=== PATIENT | female | born 1980 ===

== ENCOUNTER → 2017-08-03 10:23 | Outpatient (CLI) | payer BC, SELFPAY ==
[2017-08-03 11:53] LABS: Cholesterol 198 mg/dL (140-199); HDL Cholesterol 47 mg/dL (40-60); LDL Cholesterol Calculated 135 mg/dL (<100); Triglycerides 82 mg/dL (35-150)
== END ==
PROVIDERS: PCP Family Medicine; Visit Provider Family Medicine
DX: Z82.49 Family history of ischemic heart disease and other diseases of the circulatory system (principal)
CPT/HCPCS: 36415; 80061

== ENCOUNTER → 2018-11-22 16:12 | Outpatient (CLI) | payer BC, SELFPAY ==
[2018-11-22 17:15] LABS: Add Manual Diff / Slide Review NO; Basophils Absolute Auto 100 /uL (0-100); Basophils Percent Auto 0.7 % (0-2); Eosinophils Absolute Auto 300 /uL (0-450); Eosinophils Percent Auto 3.7 % (2-4); Hematocrit 41.5 % (36-46); Hemoglobin 14.2 g/dL (12.0-16.0); Lymphocytes Absolute Auto 3300 /uL (1100-4500); Lymphocytes Percent Auto 35.2 % (25-40); Mean Corpuscular HGB Conc 34.2 % (30-36); Mean Corpuscular Hemoglobin 28.7 PG (26-34); Mean Corpuscular Volume 83.7 fL (80-100); Monocytes Absolute Auto 600 /uL (0-900); Monocytes Percent Auto 6.3 % (3-14); Neutrophils Absolute Auto 5100 /uL (1500-7000); Neutrophils Percent Auto 54.1 % (50-75); Platelet Count 268 X10^3/uL (150-400); Red Blood Cell Count 4.96 X10^6/uL (4.0-5.2); Red Cell Distribution Width 12.5 % (11.6-14.8); White Blood Cell Count 9.5 X10^3/uL (4.5-11.0)
== END ==
PROVIDERS: Family Provider Specialist; PCP Family Medicine; Visit Provider Registered Nurse
DX: R53.83 Other fatigue (principal)
CPT/HCPCS: 36415; 85025

== ENCOUNTER → 2020-04-19 13:14 | Outpatient (CLI) | payer BC, SELFPAY ==
[2020-04-19 16:23] LABS: Alanine Aminotransferase 59 IU/L (<35); Albumin 3.9 g/dL (3.5-5.0); Albumin Globulin Ratio 1.1 (1.0-2.8); Alkaline Phosphatase 102 U/L (38-126); Aspartate Aminotransferase 49 IU/L (14-36); BUN Creatinine Ratio 29.6 (6-22); Bilirubin Total 0.2 mg/dL (0.2-1.3); Blood Urea Nitrogen 16 mg/dL (7-17); Carbon Dioxide 27 mmol/L (22-32); Chloride 108 mmol/L (98-107); Estimated Glomerular Filt Rate > 60.0 mL/min (>60); Globulin 3.4 g/dL (1.7-4.1); Glucose 122 mg/dL (70-100); HEMOLYSIS < 15 (0-50); Potassium 4.1 mmol/L (3.4-5.1); Sodium 140 mmol/L (137-145); Total Protein 7.3 g/dL (6.3-8.2)
== END ==
PROVIDERS: Family Provider Specialist; PCP Family Medicine; Referring Provider Registered Nurse; Visit Provider Registered Nurse
DX: A60.00 Herpesviral infection of urogenital system, unspecified (principal)
CPT/HCPCS: 36415; 80053

== ENCOUNTER → 2020-06-11 13:46 | Outpatient (CLI) | payer BC, SELFPAY ==
[2020-06-11 14:45] LABS: Alanine Aminotransferase 52 IU/L (<35); Albumin 4.1 g/dL (3.5-5.0); Albumin Globulin Ratio 1.2 (1.0-2.8); Alkaline Phosphatase 111 U/L (38-126); Aspartate Aminotransferase 41 IU/L (14-36); BUN Creatinine Ratio 22.2 (6-22); Bilirubin Total 0.2 mg/dL (0.2-1.3); Blood Urea Nitrogen 10 mg/dL (7-17); Calcium 9.7 mg/dL (8.4-10.2); Carbon Dioxide 25 mmol/L (22-32); Chloride 104 mmol/L (98-107); Estimated Glomerular Filt Rate > 60.0 mL/min (>60); Globulin 3.3 g/dL (1.7-4.1); Glucose 119 mg/dL (70-100); HEMOLYSIS < 15 (0-50); Potassium 4.4 mmol/L (3.4-5.1); Sodium 138 mmol/L (137-145); Total Protein 7.4 g/dL (6.3-8.2)
== END ==
PROVIDERS: Family Provider Specialist; PCP Family Medicine; Referring Provider Family Medicine; Visit Provider Family Medicine
DX: R74.01 Elevation of levels of liver transaminase levels (principal)
CPT/HCPCS: 36415; 80053

== ENCOUNTER → 2020-08-23 10:34 | Outpatient (CLI) | payer BC, SELFPAY ==
--- NOTE | 2020-08-23 | DI.MG.S_ITS ---
BILATERAL DIGITAL SCREENING MAMMOGRAM 3D/2D WITH CAD: 08/23/2020 CLINICAL: Baseline exam. Routine screening. No prior exams were available for comparison. The tissue of both breasts is heterogeneously dense. This may lower the sensitivity of mammography. Current study was also evaluated with a Computer Aided Detection (CAD) system. No significant masses, calcifications, or other findings are seen in either breast. IMPRESSION: NEGATIVE There is no mammographic evidence of malignancy. A 1 year screening mammogram is recommended. This exam was interpreted at Station ID: [id number]. NOTE: For mammograms, a report in lay terms will be sent to the patient. Approximately 15% of breast malignancies will not be visualized mammographically. In the management of a palpable breast mass, a negative mammogram must not discourage biopsy of a clinically suspicious lesion. Electronically Signed By: Richard Mosocso M.D., jr/mallory:08/23/2020 11:23:39 letter sent: Normal Exam ACR BI-RADS Category 1: Negative 3341F
== END ==
PROVIDERS: Family Provider Specialist; PCP Family Medicine; Referring Provider Family Medicine; Visit Provider Family Medicine
DX: Z12.31 Encounter for screening mammogram for malignant neoplasm of breast (principal)
CPT/HCPCS: 77063; 77067

== ENCOUNTER → 2020-08-23 13:55 | Outpatient (CLI) | payer BC, SELFPAY ==
[2020-08-23 15:13] LABS: Alanine Aminotransferase 39 IU/L (<35); Albumin Globulin Ratio 1.2 (1.0-2.8); Alkaline Phosphatase 102 U/L (38-126); Aspartate Aminotransferase 37 IU/L (14-36); BUN Creatinine Ratio 22.6 (6-22); Bilirubin Total 0.4 mg/dL (0.2-1.3); Blood Urea Nitrogen 12 mg/dL (7-17); Calcium 9.5 mg/dL (8.4-10.2); Carbon Dioxide 28 mmol/L (22-32); Chloride 104 mmol/L (98-107); Estimated Glomerular Filt Rate > 60.0 mL/min (>60); Globulin 3.3 g/dL (1.7-4.1); HEMOLYSIS < 15 (0-50); Potassium 4.4 mmol/L (3.4-5.1); Sodium 139 mmol/L (137-145); Total Protein 7.3 g/dL (6.3-8.2)
[2020-08-23 16:25] LABS: Glucose 114 mg/dL (70-100)
== END ==
PROVIDERS: Family Provider Specialist; PCP Family Medicine; Referring Provider Family Medicine; Visit Provider Family Medicine
DX: R94.5 Abnormal results of liver function studies (principal)
CPT/HCPCS: 36415; 80053

== ENCOUNTER → 2020-09-24 15:17 | Outpatient (CLI) | payer BC, SELFPAY ==
[2020-09-24 16:23] LABS: COVID19 -Nasal RAPID Negative (Negative)
== END ==
PROVIDERS: Family Provider Specialist; PCP Family Medicine; Visit Provider Physician Assistant
DX: Z20.822 Contact with and (suspected) exposure to COVID-19 (principal)
CPT/HCPCS: 87635

== ENCOUNTER → 2021-10-26 08:47 | Outpatient (CLI) | payer BC, SELFPAY ==
--- NOTE | 2021-10-26 08:48 | DI.MG.S_ITS ---
BILATERAL DIGITAL SCREENING MAMMOGRAM 3D/2D WITH CAD: 10/26/2021 CLINICAL: Routine screening. Comparison is made to exam dated: 08/23/2020 [facility]. The tissue of both breasts is heterogeneously dense. This may lower the sensitivity of mammography. Current study was also evaluated with a Computer Aided Detection (CAD) system. No significant masses, calcifications, or other findings are seen in either breast. There has been no significant interval change. IMPRESSION: NEGATIVE There is no mammographic evidence of malignancy. A 1 year screening mammogram is recommended. This exam was interpreted at Station ID: [id number]. NOTE: For mammograms, a report in lay terms will be sent to the patient. Approximately 15% of breast malignancies will not be visualized mammographically. In the management of a palpable breast mass, a negative mammogram must not discourage biopsy of a clinically suspicious lesion. Electronically Signed By: Darling ruiz/mallory:10/28/2021 08:09:00 letter sent: Normal Exam ACR BI-RADS Category 1: Negative 3341F
== END ==
PROVIDERS: Family Provider Specialist; PCP Family Medicine; Referring Provider Family Medicine; Visit Provider Family Medicine
DX: Z12.31 Encounter for screening mammogram for malignant neoplasm of breast (principal)
CPT/HCPCS: 77063; 77067

== ENCOUNTER → 2021-11-26 10:51 | Outpatient (CLI) | payer BC, SELFPAY ==
[2021-11-26 12:30] LABS: Alanine Aminotransferase 33 IU/L (<35); Albumin 4.3 g/dL (3.5-5.0); Albumin Globulin Ratio 1.1 (1.0-2.8); Alkaline Phosphatase 91 U/L (38-126); Aspartate Aminotransferase 32 IU/L (14-36); Bilirubin Total 0.8 mg/dL (0.2-1.3); Blood Urea Nitrogen 10 mg/dL (7-17); Calcium 9.4 mg/dL (8.4-10.2); Carbon Dioxide 23 mmol/L (22-32); Chloride 105 mmol/L (98-107); Estimated Glomerular Filt Rate > 60 mL/min (>60); Globulin 3.8 g/dL (1.7-4.1); Glucose 89 mg/dL (70-100); HEMOLYSIS < 15 (0-50); Potassium 4.1 mmol/L (3.4-5.1); Sodium 141 mmol/L (137-145); Total Protein 8.1 g/dL (6.3-8.2)
== END ==
PROVIDERS: Family Provider Specialist; PCP Family Medicine; Referring Provider Family Medicine; Visit Provider Family Medicine
DX: R74.01 Elevation of levels of liver transaminase levels (principal)
CPT/HCPCS: 36415; 80053

== ENCOUNTER → 2022-06-05 11:34 | Outpatient (CLI) | payer BC, SELFPAY | PROVIDERS: Family Provider Specialist; PCP Family Medicine; Visit Provider Family Medicine | DX: J02.9 Acute pharyngitis, unspecified (principal) | CPT/HCPCS: 87070 ==

== ENCOUNTER → 2022-10-31 08:27 | Outpatient (CLI) | payer BC, SELFPAY ==
--- NOTE | 2022-10-31 | DI.MG.S_ITS ---
BILATERAL DIGITAL SCREENING MAMMOGRAM 3D/2D WITH CAD: 10/31/2022 CLINICAL: Routine screening. Comparison is made to exams dated: 10/26/2021 mammogram and 08/23/2020 mammogram - [facility]. Both breasts are heterogeneously dense, which may obscure small masses (category c / 51-75% glandular tissue). Current study was also evaluated with a Computer Aided Detection (CAD) system. No significant masses, calcifications, or other findings are seen in either breast. There has been no significant interval change. IMPRESSION: NEGATIVE There is no mammographic evidence of malignancy. A 1 year screening mammogram is recommended. Based on the Tyrer Cuzick model (a risk assessment model) the patient's lifetime risk is 16.8% and her 10 year risk is 2.9%. According to the ACR, ACS, and NCCN guidelines, an annual breast MRI exam along with mammogram is recommended if the patient's lifetime risk is 20% or greater. This exam was interpreted at Station ID: [id number]. NOTE: For mammograms, a report in lay terms will be sent to the patient. Approximately 15% of breast malignancies will not be visualized mammographically. In the management of a palpable breast mass, a negative mammogram must not discourage biopsy of a clinically suspicious lesion. Electronically Signed By: Jason cardona/mallory:10/31/2022 09:39:15 letter sent: Normal Exam ACR BI-RADS Category 1: Negative 3341F
== END ==
PROVIDERS: Family Provider Specialist; PCP Family Medicine; Referring Provider Family Medicine; Visit Provider Family Medicine
DX: Z12.31 Encounter for screening mammogram for malignant neoplasm of breast (principal)
CPT/HCPCS: 77063; 77067

== ENCOUNTER → 2023-03-27 16:35 | Outpatient (CLI) | payer BC, SELFPAY ==
[2023-03-27 18:00] LABS: Add Manual Diff / Slide Review NO; Basophils Absolute Auto 0 /uL (0-100); Basophils Percent Auto 0.2 % (0-2); Eosinophils Absolute Auto 200 /uL (0-450); Eosinophils Percent Auto 4.1 % (2-4); Hematocrit 39.5 % (36-46); Hemoglobin 13.2 g/dL (12.0-16.0); Lymphocytes Absolute Auto 3100 /uL (1100-4500); Lymphocytes Percent Auto 50.5 % (25-40); Mean Corpuscular HGB Conc 33.4 % (30-36); Mean Corpuscular Hemoglobin 26.2 PG (26-34); Mean Corpuscular Volume 78.4 fL (80-100); Monocytes Absolute Auto 700 /uL (0-900); Monocytes Percent Auto 12.1 % (3-14); Neutrophils Absolute Auto 2000 /uL (1500-7000); Neutrophils Percent Auto 33.1 % (50-75); Platelet Count 241 X10^3/uL (150-400); Red Blood Cell Count 5.04 X10^6/uL (4.0-5.2); White Blood Cell Count 6.1 X10^3/uL (4.5-11.0)
[2023-03-27 18:37] LABS: Alanine Aminotransferase 37 IU/L (<35); Albumin Globulin Ratio 1.1 (1.0-2.8); Alkaline Phosphatase 67 U/L (38-126); Aspartate Aminotransferase 36 IU/L (14-36); BUN Creatinine Ratio 23.1 (6-22); Bilirubin Total 0.5 mg/dL (0.2-1.3); Blood Urea Nitrogen 9 mg/dL (7-17); Carbon Dioxide 23 mmol/L (22-32); Chloride 106 mmol/L (98-107); Cholesterol 119 mg/dL (140-199); Estimated Glomerular Filt Rate > 60 mL/min (>60); Globulin 3.8 g/dL (1.7-4.1); Glucose 138 mg/dL (70-100); HDL Cholesterol 35 mg/dL (40-60); HEMOLYSIS < 15 (0-50); LDL Cholesterol Calculated 63 mg/dL (<100); Potassium 3.7 mmol/L (3.4-5.1); Sodium 137 mmol/L (137-145); Total Protein 7.8 g/dL (6.3-8.2); Triglycerides 104 mg/dL (35-150)
== END ==
PROVIDERS: Family Provider Specialist; PCP Family Medicine; Referring Provider Family Medicine; Visit Provider Family Medicine
DX: Z00.00 Encounter for general adult medical examination without abnormal findings (principal)
CPT/HCPCS: 36415; 80053; 80061; 85025

== ENCOUNTER → 2023-04-18 08:15 | Outpatient (CLI) | payer BC, SELFPAY | PROVIDERS: Family Provider Specialist; PCP Family Medicine; Referring Provider Family Medicine; Visit Provider Family Medicine | DX: R73.9 Hyperglycemia, unspecified (principal) | CPT/HCPCS: 36415; 83036 ==

== ENCOUNTER → 2023-04-28 10:17 | Outpatient (CLI) | payer BC, SELFPAY ==
[2023-04-28 11:11] LABS: COVID-19 CEPHEID 4-PLEX PCR Negative (Negative); Influenza A - CEPHEID Flu A NEGATIVE (NEGATIVE); Influenza B - CEPHEID Flu B NEGATIVE (NEGATIVE); Respiratory Syncytial Virus Negative (Negative)
== END ==
PROVIDERS: Family Provider Specialist; PCP Family Medicine; Visit Provider Physician Assistant Surgical
DX: R05.1 Acute cough (principal); J35.1 Hypertrophy of tonsils
CPT/HCPCS: 0241U; 87070

== ENCOUNTER → 2023-07-03 09:52 | Outpatient (CLI) | payer BC, SELFPAY | PROVIDERS: Family Provider Specialist; PCP Family Medicine; Visit Provider Nurse Practitioner Family | DX: J02.9 Acute pharyngitis, unspecified (principal) | CPT/HCPCS: 87070 ==

== ENCOUNTER → 2023-11-14 09:47 | Outpatient (CLI) | payer BC, SELFPAY ==
--- NOTE | 2023-11-14 09:48 | DI.MG.S_ITS ---
BILATERAL DIGITAL SCREENING MAMMOGRAM 3D/2D WITH CAD: 11/14/2023 CLINICAL: Routine screening. Comparison is made to exams dated: 10/31/2022 mammogram, 10/26/2021 mammogram, and 08/23/2020 mammogram - [facility]. Both breasts are heterogeneously dense, which may obscure small masses (category c / 51-75% glandular tissue). Current study was also evaluated with a Computer Aided Detection (CAD) system. No significant masses, calcifications, or other findings are seen in either breast. There has been no significant interval change. IMPRESSION: NEGATIVE There is no mammographic evidence of malignancy. A 1 year screening mammogram is recommended. Based on the Tyrer Cuzick model (a risk assessment model) the patient's lifetime risk is 14.4% and her 10 year risk is 2.6%. According to the ACR, ACS, and NCCN guidelines, an annual breast MRI exam along with mammogram is recommended if the patient's lifetime risk is 20% or greater. This exam was interpreted at Station ID: [id number]. NOTE: For mammograms, a report in lay terms will be sent to the patient. Approximately 15% of breast malignancies will not be visualized mammographically. In the management of a palpable breast mass, a negative mammogram must not discourage biopsy of a clinically suspicious lesion. Electronically Signed By: Aneta Self M.D., Ph.D. sena/mallory:11/17/2023 09:52:52 letter sent: Normal Exam ACR BI-RADS Category 1: Negative 3341F
== END ==
PROVIDERS: Family Provider Specialist; PCP Family Medicine; Referring Provider Family Medicine; Visit Provider Family Medicine
DX: Z12.31 Encounter for screening mammogram for malignant neoplasm of breast (principal)
CPT/HCPCS: 77063; 77067

== ENCOUNTER 2024-01-12 12:38 | Day surgery (SDC) | payer BC, SELFPAY ==
[2024-01-12 13:05] VITALS: BP 151/100; PULSE 103; RESP 16; TEMP 36.8; O2SAT 99
[2024-01-12 13:32] LABS: COVID19 -Nasal RAPID POSITIVE (Negative)
== END 2024-01-12 12:40 | disposition home or self-care (01) ==
LOC: ENDO 12:39
PROVIDERS: Family Provider Specialist; PCP Family Medicine; Referring Provider Surgery; Visit Provider Surgery
DX: Z12.11 Encounter for screening for malignant neoplasm of colon (principal); U07.1 COVID-19; Z53.09 Procedure and treatment not carried out because of other contraindication
CPT/HCPCS: 45378; 87635

== ENCOUNTER → 2024-09-09 15:51 | Outpatient (CLI) | payer BC, SELFPAY ==
[2024-09-09 17:15] LABS: Add Manual Diff / Slide Review NO; Basophils Absolute Auto 0 /uL (0-100); Basophils Percent Auto 0.4 % (0-2); Eosinophils Absolute Auto 300 /uL (0-450); Eosinophils Percent Auto 3.6 % (2-4); Hematocrit 44.3 % (36-46); Hemoglobin 15.1 g/dL (12.0-16.0); Lymphocytes Absolute Auto 2500 /uL (1100-4500); Lymphocytes Percent Auto 29.2 % (25-40); Mean Corpuscular HGB Conc 34.1 % (30-36); Mean Corpuscular Hemoglobin 27.3 PG (26-34); Mean Corpuscular Volume 80.2 fL (80-100); Monocytes Absolute Auto 700 /uL (0-900); Monocytes Percent Auto 8.4 % (3-14); Neutrophils Absolute Auto 5100 /uL (1500-7000); Neutrophils Percent Auto 58.4 % (50-75); Platelet Count 284 X10^3/uL (150-400); Red Blood Cell Count 5.53 X10^6/uL (4.0-5.2); Red Cell Distribution Width 12.8 % (11.6-14.8); White Blood Cell Count 8.6 X10^3/uL (4.5-11.0)
[2024-09-09 17:39] LABS: Alanine Aminotransferase 25 IU/L (<35); Albumin 4.5 g/dL (3.5-5.0); Albumin Globulin Ratio 1.1 (1.0-2.8); Alkaline Phosphatase 75 U/L (38-126); Aspartate Aminotransferase 28 IU/L (14-36); BUN Creatinine Ratio 16.4 (6-22); Bilirubin Total 0.4 mg/dL (0.2-1.3); Blood Urea Nitrogen 9 mg/dL (7-17); Calcium 9.2 mg/dL (8.4-10.2); Carbon Dioxide 25 mmol/L (22-32); Chloride 104 mmol/L (98-107); Estimated Glomerular Filt Rate > 60 mL/min (>60); Glucose 118 mg/dL (70-99); HEMOLYSIS < 15 (0-50); Potassium 4.3 mmol/L (3.4-5.1); Sodium 138 mmol/L (137-145); Total Protein 8.5 g/dL (6.3-8.2)
== END ==
PROVIDERS: Family Provider Specialist; PCP Family Medicine; Referring Provider Family Medicine; Visit Provider Family Medicine
DX: R59.0 Localized enlarged lymph nodes (principal)
CPT/HCPCS: 36415; 80053; 85025

== ENCOUNTER → 2024-09-21 16:37 | Outpatient (CLI) | payer BC, SELFPAY ==
--- NOTE | 2024-09-21 16:38 | DI.US.S_ITS ---
PROCEDURE: US SOFT TISSUE HEAD AND NECK INDICATIONS: Lt LAD, left neck nodule/mass and right neck pain per notes. TECHNIQUE: Real-time scanning was performed of the neck region of interest, with image documentation. Ten images. COMPARISON: None. FINDINGS: In the area of interest in the left lateral inferior neck several small lymph nodes , likely level 3 nodes measuring up to 1.5 x 1.1 x 0.4 cm commonly reactive/inflammatory nodes. If indicated CT or MRI neck with contrast could be performed. Incidentally noted on the right thyroid lobe there is heterogeneous echogenicity diffusely with possible right thyroid nodule measuring up to approximately 2 cm. If indicated dedicated ultrasound thyroid could be performed. IMPRESSION: Left neck lymph nodes commonly reactive/inflammatory without abnormally enlarged nodes. If indicated CT or MRI could be performed. Heterogeneous right thyroid lobe possible right thyroid nodule as discussed above. Dictated by: Johnathan Cole M.D. on 09/22/2024 at 10:52 Approved by: Johnathan Cole M.D. on 09/22/2024 at 10:57
== END ==
LOC: US 16:38
PROVIDERS: Family Provider Specialist; PCP Family Medicine; Referring Provider Family Medicine; Visit Provider Family Medicine
DX: R59.0 Localized enlarged lymph nodes (principal)
CPT/HCPCS: 76536

== ENCOUNTER → 2024-10-11 12:09 | Outpatient (CLI) | payer BC, SELFPAY ==
--- NOTE | 2024-10-11 12:10 | DI.US.S_ITS ---
PROCEDURE: US THYROID INDICATIONS: FOLLOW UP SOFT TISSUE HEAD NECK 09/21/24 ?NODULE RIGHT THYROID TECHNIQUE: Real-time scanning was performed of the thyroid gland, with image documentation. COMPARISON: [facility], US, US SOFT TISSUE HEAD AND NECK, 09/21/2024, 16:53. FINDINGS: Thyroid: Right lobe measures 5.9 x 2.4 x 1.9 cm. Left lobe measures 5.3 x 2.2 x 1.4 cm. Isthmus is 0.4 cm thick. Echotexture is heterogeneous. Symmetric vascularity of the bilateral thyroid lobes. Nodule number: 1 (possible irregular nodule versus focal hypoechoic tissue within the heterogeneous thyroid) Location: Left superior mid thyroid lobe Size: 1.2 x 0.5 x 0.5 cm. Composition: Solid Echogenicity: Hypoechoic Shape: wider than tall. Margins: Irregular Echogenic foci: None Total points: 6 ACR TI-RADS category: TIRADS 4 (moderately suspicious) IMPRESSION: Mildly enlarged and moderately heterogeneous appearance of the thyroid gland. There is a possible 1.2 cm superior left thyroid nodule versus focal tissue within heterogeneous thyroid gland. By consensus criteria, this possible thyroid nodule demonstrates characteristics of a TIRADS 4 (moderately suspicious) nodule. Recommend follow- up ultrasound in 1 year to document stability. ACR TI-RADS definitions and recommendations: TI-RADS 1 (benign): 0 points. FNA not needed. TI-RADS 2 (not suspicious): 2 points. FNA not needed. TI-RADS 3: 3 points. * FNA if 2.5 cm or larger, follow up if 1.5 cm or larger (at 1, 3, and 5 years). TI-RADS 4: 4-6 points. * FNA if 1.5 cm or larger, follow up if 1 cm or larger (at 1, 2, 3, and 5 years). TI-RADS 5: 7 points or more. * FNA if 1 cm or larger, follow up if 0.5 cm or larger (every year for 5 years). Dictated by: Ez Rehman M.D. on 10/11/2024 at 17:59 Approved by: Ez Rehman M.D. on 10/11/2024 at 18:05
== END ==
PROVIDERS: Family Provider Specialist; PCP Family Medicine; Referring Provider Family Medicine; Visit Provider Family Medicine
DX: E04.1 Nontoxic single thyroid nodule (principal)
CPT/HCPCS: 76536

== ENCOUNTER → 2024-11-19 09:50 | Outpatient (CLI) | payer BC, SELFPAY ==
--- NOTE | 2024-11-19 09:51 | DI.MG.S_ITS ---
MM screening mammo BI: 11/19/2024. BI-RADS: 1 CLINICAL: 44-year old female for bilateral screening mammogram. Tyrer-Cuzick lifetime risk of 10.4%. No personal or first-degree family history of breast cancer. History of ovarian cancer in one first-degree relative. PRIOR EXAMS 11/14/2023, 10/31/2022, 10/26/2021, 08/23/2020. MAMMOGRAPHY TECHNIQUE: 2D and 3D (tomosynthesis) digital mammographic views obtained, with additional images as needed for full coverage. Current study was also evaluated with a Computer Aided Detection (CAD) system. DENSITY C. The breasts are heterogeneously dense, which may obscure small masses. MAMMOGRAPHY FINDINGS Bilateral: No suspicious mass, asymmetry, microcalcification, or other abnormality seen. IMPRESSION: * No evidence of malignancy. RECOMMENDATIONS Bilateral * Annual screening mammography. OVERALL ASSESSMENT CATEGORY BI-RADS-1: Negative. The [employer] recommends annual screening mammography beginning at age 40 for women with average risk of breast cancer. ELECTRONICALLY SIGNED: Ez Rehman M.D. on 11/20/2024 at 08:36:35 PM PT Interpreting Station ID: [id number]
== END ==
LOC: MAMMO 09:51
PROVIDERS: PCP Family Medicine; Referring Provider Family Medicine; Visit Provider Family Medicine
DX: Z12.31 Encounter for screening mammogram for malignant neoplasm of breast (principal); R92.333 Mammographic heterogeneous density, bilateral breasts; Z80.41 Family history of malignant neoplasm of ovary
CPT/HCPCS: 77063; 77067

== ENCOUNTER 2024-12-30 08:00 | Day surgery (SDC) | payer BC, SELFPAY ==
[2024-12-30 08:35] VITALS: BP 144/91; PULSE 90; RESP 12; TEMP 36.5; O2SAT 98
[2024-12-30] MEDS: LACTATED RINGERS 1,000 ML 42 ML IV (08:56)
--- NOTE | 2024-12-30 09:07 | P.HP_ITS ---
History of Present Illness History of Present Illness Date Patient Seen: 12/30/24 Time Patient Seen: 09:07 Chief complaint: SDC Narrative: Rafael is a 44-year-old woman here for her first screening colonoscopy. No family history of colon cancer. [facility] Medical History (Updated 12/30/24 @ 09:07 by Abel Donnelly MD) Thyroid nodule Lymphadenopathy of left cervical region Herpes H/O abnormal cervical Papanicolaou smear (2002) Surgical History Anesthesia Status post delivery (08/30/16) Family History Grandfather Hypertension High cholesterol Stroke Grandmother Hypertension High cholesterol Stroke Mother Age: 68 High cholesterol Social History Smoking Status: Never smoker alcohol intake: current Meds Home Medications and Allergies Allergies Allergy/AdvReac Type Severity Reaction Status Date / Time No Known Drug Allergies Allergy Verified 12/30/24 08:33 Exam Vital Signs (past 8 hours): - 12/30/24 08:35 Temperature 97.7 F Pulse Rate 90 Respiratory Rate 12 Blood Pressure 144/91 H Pulse Oximetry 98 Oxygen Delivery Method Room Air Oxygen Delivery Method Room Air Const General: healthy appearing Assessment & Plan Assessment and plan (1) Colon cancer screening: Status: Acute Plan Colonoscopy Time-Based Coding :: [TOTAL MINUTES] spent with patient and on the chart (including review of chart, obtaining history, exam, reviewing outside data, placing orders, documenting exam and treatment plan, and counseling patient) on [DATE]. [employer] Document charge(s): No
--- NOTE | 2024-12-30 09:31 | P.OP.COLON_ITS ---
Operative Date/Time/Diagnoses Date of procedure: 12/30/24 Time of procedure: 09:31 Pre-op diagnosis: Colon cancer screening Post-op diagnosis: same Procedure & Clinicians Study performed: Colonoscopy Same procedure(s) as scheduled: Yes Surgeon: Abel Donnelly Anesthesia Type: MAC +/- Procedure Notes Procedure in detail: Surgeon: Abel Donnelly MD Anesthesia: Ernestina Manuela CANDY SEPARATOR HARD Procedure: The patient was brought to the endoscopy suite, placed in left lateral decubitus position. The patient was connected to monitoring devices. A time-out was performed. Sedation was administered. Once the patient was adequately sedated, a digital rectal exam was performed and was normal. The scope was then inserted and advanced to the cecum where the appendiceal orifice was identified and photographed. The scope was then slowly withdrawn over greater than 6 minutes. The mucosa was thoroughly inspected. No abnormalities were identified. The scope was retroflexed in the rectum. The scope was straightened and removed. The patient was awakened and brought to recovery. Scope withdrawal time: 6 minutes Sedation time: 9 minutes EBL: 0 Findings: Normal colon Post-procedure Recommendations: Colonoscopy in 10 years Disposition: PACU
[2024-12-30 09:34] VITALS: BP 121/60; PULSE 84; RESP 23; TEMP 36.2; O2SAT 99
[2024-12-30 09:39] VITALS: BP 121/67; PULSE 79; RESP 21; O2SAT 100
[2024-12-30 09:43] VITALS: BP 118/63; PULSE 74; RESP 20; TEMP 36.2; O2SAT 100
[2024-12-30 09:47] VITALS: BP 110/71; PULSE 77; RESP 18; TEMP 36.2; O2SAT 100
== END 2024-12-30 10:30 | disposition home or self-care (01) ==
PROVIDERS: PCP Family Medicine; Referring Provider Surgery; Visit Provider Surgery
PROC: 0DJD8ZZ Inspection of Lower Intestinal Tract, Via Natural or Artificial Opening Endoscopic (ICD-10-PCS; CPT 45378; principal; 2024-12-30 09:15)
DX: Z12.11 Encounter for screening for malignant neoplasm of colon (principal)
CPT/HCPCS: 45378; J2704; J7120